=== PATIENT | male | born 1985 | race Caucasian/White ===

== ENCOUNTER 2025-06-12 10:21 | Outpatient (CLI) | payer BC, SELFPAY ==
--- NOTE | 2025-06-12 10:32 | XR_ITS ---
WS: [id number] Right hip, AP and frog-leg views, 06/12/2025 Clinical Data: M25.551 - Pain in right hip Comparison: None. Findings: No fractures or dislocations are seen. The hip joint shows no erosion, sclerosis, narrowing or fragmentation of the right femoral head. The soft tissues are not remarkable. The adjacent pelvis is normal. XR/XR hip RT 2-3V wo/w pel* [id number] Impression: Negative right hip.
--- NOTE | 2025-06-12 10:32 | XR_ITS ---
WS: [email or web address] Lumbar spine, 3 views, 06/12/2025 Clinical Data: M54.50 - Low back pain, unspecified Comparison: None. Findings: No compression fractures or subluxation is seen. No disc space narrowing is seen. The transverse processes and SI joints are normal. XR/XR lumbar spine 2-3V* [id number] Impression: Negative lumbar spine.
== END 2025-06-12 10:22 | disposition home or self-care (01) ==
PROVIDERS: PCP Nurse Practitioner Family; Visit Provider Nurse Practitioner Family
DX: M54.16 Radiculopathy, lumbar region (principal); M25.551 Pain in right hip; M54.50 Low back pain, unspecified; R20.0 Anesthesia of skin
CPT/HCPCS: 72100; 73502

== ENCOUNTER 2025-07-08 14:23 | Outpatient (CLI) | payer BC, SELFPAY ==
--- NOTE | 2025-07-08 13:45 | MR_ITS ---
WS: [id number] MRI LUMBAR SPINE NONCONTRAST TECHNIQUE: Sagittal T1, T2 and STIR imaging. Axial T1 and T2 imaging. CLINICAL INFORMATION: M54.16 - Radiculopathy, lumbar region COMPARISON: None. FINDINGS: Mild lumbar curve. No acute compression. No high-grade central canal stenosis. Slight anterolisthesis L5 on S1. Mild disc bulging worse at L4-L5 and L5-S1. L1-L2: Normal. L2-L3: Normal. L3-L4: Mild annular bulging. Slight effacement of the ventral thecal sac. Mild facet arthropathy. L4-L5: RIGHT paracentral protrusion impinges the traversing RIGHT L5 nerve root in the subarticular recess. Mild central canal stenosis. Mild facet arthropathy. Small RIGHT foraminal protrusion with mild RIGHT foraminal narrowing. L5-S1: Mild annular bulging. Tiny central protrusion with a tiny annular fissure. Slight effacement of the ventral thecal sac. Spinal canal and foramen are patent. Mild facet arthropathy. Visualized pelvic bony structures: Normal. Paravertebral soft tissues: Normal. Incidental Tarlov cyst in the sacrum. MR/MR lumbar spine wo con* [id number] IMPRESSION: 1. Mild lumbar curve. No acute compression. 2. RIGHT subarticular disc protrusion L4-5 impinges the RIGHT subarticular rec ess and traversing RIGHT L5 nerve root. Small RIGHT foraminal protrusion at thi s level with mild RIGHT foraminal narrowing. 3. Mild central canal stenosis L4-5. 4. Slight anterolisthesis L5 on S1 with mild annular bulging and a small annul ar fissure.
== END 2025-07-08 14:24 | disposition home or self-care (01) ==
LOC: RAD 14:28
PROVIDERS: PCP Nurse Practitioner Family; Visit Provider Nurse Practitioner Family
DX: M51.16 Intervertebral disc disorders with radiculopathy, lumbar region (principal); M48.061 Spinal stenosis, lumbar region without neurogenic claudication
CPT/HCPCS: 72148